=== PATIENT | male | born 1985 | race Caucasian/White ===

== ENCOUNTER 2023-04-18 23:27 | Emergency (ER) | payer BC ==
[~2023-04-18] VITALS: Ht 185.4 cm; Wt 109.8 kg
[2023-04-19 00:35] LABS: BASOPHILS % (AUTO) 0.2 % (0.0-2.0); EOSINOPHILS # (AUTO) 0.3 K/uL (0.0-0.7); EOSINOPHILS % (AUTO) 3.8 % (0.0-7.0); HEMATOCRIT 44.4 % (36.7-47.1); LYMPHOCYTES # (AUTO) 2.1 K/uL (0.8-4.8); LYMPHOCYTES % (AUTO) 27.5 % (20.5-51.5); MEAN CORPUSCULAR HEMOGLOBIN 27.4 uug (23.8-33.4); MEAN CORPUSCULAR HGB CONC 34 g/dL (32.5-36.3); MEAN CORPUSCULAR VOLUME 80.9 fL (73.0-96.2); MONOCYTES # (AUTO) 0.5 K/uL (0.1-1.30); MONOCYTES % (AUTO) 6.3 % (0.0-11.0); NEUTROPHILS # (AUTO) 4.7 K/uL (1.8-8.9); NEUTROPHILS % (AUTO) 62.2 % (38.5-71.5); PLATELET COUNT (AUTO) 215 K/uL (152-348); RED BLOOD CELL COUNT(AUTO) 5.49 MIL/uL (4.06-5.63); RED CELL DISTRIBUTION WIDTH 13.8 % (12.1-16.2); WHITE BLOOD COUNT (AUTO) 7.6 K/uL (3.6-10.2)
[2023-04-19 00:36] LABS: DIFFERENTIAL COMMENT 1
[2023-04-19 00:41] LABS: CALCIUM 9.4 mg/dL (8.5-10.1); POTASSIUM 3.4 mmol/L (3.5-5.1)
[2023-04-19] MEDS ORDERED: CLONIDINE HCL 0.2 MG TABLET ONE (01:14)
[2023-04-19] MEDS ORDERED: CLONIDINE HCL 0.2 MG TABLET PO ONE (01:15)
[2023-04-19] MEDS ORDERED: FLAS1KIT2 TP (02:44)
[2023-04-19] MEDS ORDERED: FLAS1EAC2 MC (02:44)
[2023-04-19] MEDS ORDERED: CLON0.1T PO (02:44)
[2023-04-19] MEDS ORDERED: LISI30TA4 PO (02:44)
[2023-04-19 03:02] VITALS: BP 152/98; O2SAT 97
== END 2023-04-19 03:02 | disposition home or self-care (01) ==
LOC: ER 23:34
DX: I10 Essential (primary) hypertension (principal); E88.810 Metabolic syndrome; Z88.1 Allergy status to other antibiotic agents; Z79.899 Other long term (current) drug therapy
CPT/HCPCS: 36415; 83735; 85025; 93005; A4606; A4663